=== PATIENT | male | born 1945 | race Caucasian/White ===

== ENCOUNTER 2016-12-04 14:46 | Inpatient (IN) | payer MEDICARE, OTHER ==
[~2016-12-04] VITALS: Ht 182.9 cm; Wt 72.9 kg
[2016-12-04] MEDS ORDERED: SODIUM CHLORIDE FLUSH 10ML SYR IVF ONE (15:00)
[2016-12-04 15:15] LABS: HEMATOCRIT 37.5 % (39.2-51.8); HEMOGLOBIN 12.9 g/dL (13.7-18.0); WHITE BLOOD COUNT 15.9 x10^3/uL (3.4-10)
[2016-12-04 15:21] LABS: ABG COLLECTION SITE LEFT BRACHIAL
[2016-12-04 15:30] LABS: BLOOD UREA NITROGEN 17 mg/dL (7-18)
[2016-12-04 15:36] LABS: ACETAMINOPHEN 2 mcg/mL (10-30); ASPARTATE AMINO TRANSFERASE 18 U/L (15-37)
[2016-12-04 15:38] LABS: IS PT STATUS REG ER OR PRE ER? YES
[2016-12-04] MEDS ORDERED: SODIUM CHLORIDE 0.9% 1,000 ML IV ONE (15:42)
[2016-12-04] MEDS: AMPICILLIN/SULBACTAM 3 GM in SODIUM CHLORIDE 0.9% 100 ML IV SCH ×2 (16:00→22:35)
[2016-12-04] MEDS ORDERED: SODIUM CHLORIDE 0.9% 1,000ML IVBOLUS ONE ×2 (16:00→22:30)
[2016-12-04] MEDS ORDERED: SUCCINYLCHOLINE 20 MG/ML, 10ML IVPush ONE (16:00)
[2016-12-04] MEDS ORDERED: ONDANSETRON 2MG/ML, 2ML IVPush PRN (16:30)
[2016-12-04] MEDS ORDERED: morphine SULFATE 10 MG/ML, 1ML IVPush PRN (16:30)
[2016-12-04] MEDS ORDERED: ENALAPRILAT 1.25 MG/ML, 2ML IVPush PRN (16:30)
[2016-12-04] MEDS ORDERED: POLYETHYLENE GLYCOL 17 GM PACKET PO PRN (16:30)
[2016-12-04] MEDS ORDERED: LORazepam 2 MG/ML, 1ML IVPush PRN (16:30)
[2016-12-04] MEDS ORDERED: OXYcodone IR 5MG TABLET PO PRN (16:30)
[2016-12-04] MEDS ORDERED: ETOMIDATE 40 MG/20 ML ONE (16:45)
[2016-12-04] MEDS ORDERED: SUCCINYLCHOLINE 20 MG/ML, 10ML ONE (16:45)
[2016-12-04] MEDS ORDERED: NOREPINEPHRINE 4 MG in SODIUM CHLORIDE 0.9% 246 ML IV PRN (17:00)
[2016-12-04 17:05] LABS: DAU SCREEN DISCLAIMER
[2016-12-04] MEDS ORDERED: FAMOTIDINE 20 MG/2 ML IV SCH (17:30)
[2016-12-04] MEDS ORDERED: MIDAZOLAM 1 MG/ML, 2ML IVPush PRN (17:30)
[2016-12-04] MEDS ORDERED: LIDOCAINE-MPF 1%, 2ML ENDO PRN (17:30)
[2016-12-04] MEDS ORDERED: PHARMACY MAY ADJ FOR RENAL FX MC SCH (17:30)
[2016-12-04] MEDS: ALBUTEROL/IPRATROPIUM 2.5MG/0.5MG, 3 ML INLINE SCH ×2 (17:30→21:40)
[2016-12-04] MEDS ORDERED: BISACODYL 10 MG SUPP PR PRN (17:30)
[2016-12-04] MEDS ORDERED: SENNA/DOCUSATE TABLET NG PRN (17:30)
[2016-12-04] MEDS ORDERED: MAGNESIUM SULFATE PMX 2GM/50ML 50 ML IV ONE (18:30)
[2016-12-04] MEDS: NS + 20MEQ KCL 1,000 ML IV SCH (18:33)
[2016-12-04] MEDS: SODIUM CHLORIDE 0.9% 1,000ML IV SCH ×2 (20:12→23:27)
[2016-12-04 20:40] LABS: ACETAMINOPHEN < 2 mcg/mL (10-30); IS PT STATUS REG ER OR PRE ER? NO
[2016-12-04] MEDS: PLEASE ENTER HEIGHT AND WEIGHT MC SCH (21:08)
[2016-12-04] MEDS: ENOXAPARIN 40 MG/0.4 ML SQ SCH (21:08)
[2016-12-04] MEDS ORDERED: POTASSIUM CHLORIDE 20 MEQ PACKET NG ONE (23:30)
[2016-12-05] MEDS: PLEASE ENTER HEIGHT AND WEIGHT MC SCH
[2016-12-05] MEDS: ALBUTEROL/IPRATROPIUM 2.5MG/0.5MG, 3 ML INLINE SCH ×3 (02:19→09:30)
[2016-12-05 03:33] LABS: HEMATOCRIT 34.5 % (39.2-51.8); HEMOGLOBIN 11.9 g/dL (13.7-18.0); WHITE BLOOD COUNT 12.4 x10^3/uL (3.4-10)
[2016-12-05 03:41] LABS: ASPARTATE AMINO TRANSFERASE 50 U/L (15-37); BLOOD UREA NITROGEN 14 mg/dL (7-18)
[2016-12-05 03:45] LABS: IS PT STATUS REG ER OR PRE ER? NO
[2016-12-05] MEDS: NS + 20MEQ KCL 1,000 ML IV SCH (03:47)
[2016-12-05] MEDS: AMPICILLIN/SULBACTAM 3 GM in SODIUM CHLORIDE 0.9% 100 ML IV SCH ×4 (03:47→22:44)
[2016-12-05 04:00] VITALS: BP 102/109
[2016-12-05 04:32] LABS: ABG COLLECTION SITE RIGHT BRACHIAL
[2016-12-05] MEDS: SODIUM CHLORIDE 0.9% 1,000 ML IV SCH ×3 (06:26→20:25)
[2016-12-05] MEDS ORDERED: SENNA/DOCUSATE TABLET PO SCH (09:00)
[2016-12-05] MEDS: PANTOPRAZOLE 40 MG IV IVPush SCH (09:01)
[2016-12-05 10:06] LABS: IS PT STATUS REG ER OR PRE ER? NO
[2016-12-05] MEDS: METOPROLOL TARTRATE 25 MG TABLET PO SCH ×2 (11:41→18:00)
[2016-12-05] MEDS: ASPIRIN 81 MG TABLET CHEW PO SCH (16:00)
[2016-12-05] MEDS: ENOXAPARIN 40 MG/0.4 ML SQ SCH (20:25)
[2016-12-06 04:00] VITALS: BP 118/68
[2016-12-06 04:41] LABS: ABG COLLECTION SITE RIGHT RADIAL; COLLATERAL CIRCULATION TESTING NORMAL
[2016-12-06] MEDS: SODIUM CHLORIDE 0.9% 1,000 ML IV SCH ×4 (04:43→21:21)
[2016-12-06] MEDS: AMPICILLIN/SULBACTAM 3 GM in SODIUM CHLORIDE 0.9% 100 ML IV SCH (04:43)
[2016-12-06 04:55] LABS: BLOOD UREA NITROGEN 8 mg/dL (7-18); HEMATOCRIT 33.7 % (39.2-51.8); HEMOGLOBIN 11.5 g/dL (13.7-18.0); WHITE BLOOD COUNT 9.1 x10^3/uL (3.4-10)
[2016-12-06 04:58] LABS: ASPARTATE AMINO TRANSFERASE 45 U/L (15-37)
[2016-12-06] MEDS: METOPROLOL TARTRATE 25 MG TABLET PO SCH ×2 (06:00→18:00)
[2016-12-06] MEDS: ASPIRIN 81 MG TABLET CHEW PO SCH (09:00)
[2016-12-06] MEDS ORDERED: POTASSIUM PHOSPHATE 44 MEQ in SODIUM CHLORIDE 0.9% 500 ML IV ONE (09:00)
[2016-12-06] MEDS: PANTOPRAZOLE 40 MG IV IVPush SCH (10:38)
[2016-12-06 13:41] LABS: ABG COLLECTION SITE LEFT RADIAL; COLLATERAL CIRCULATION TESTING NORMAL
[2016-12-06] MEDS: ENOXAPARIN 40 MG/0.4 ML SQ SCH (21:20)
[2016-12-07 04:37] LABS: ABG COLLECTION SITE LEFT RADIAL; COLLATERAL CIRCULATION TESTING NORMAL
[2016-12-07 04:42] LABS: HEMATOCRIT 36.6 % (39.2-51.8); HEMOGLOBIN 12.7 g/dL (13.7-18.0); WHITE BLOOD COUNT 10.1 x10^3/uL (3.4-10)
[2016-12-07 04:52] LABS: BLOOD UREA NITROGEN 7 mg/dL (7-18)
[2016-12-07] MEDS: SODIUM CHLORIDE 0.9% 1,000 ML IV SCH (05:33)
[2016-12-07] MEDS: METOPROLOL TARTRATE 25 MG TABLET PO SCH ×2 (05:33→18:00)
[2016-12-07] MEDS ORDERED: FUROSEMIDE 20 MG/2 ML IV ONE (10:00)
[2016-12-07] MEDS ORDERED: POTASSIUM CHLORIDE 20 MEQ TAB.ER.PRT PO ONE (10:05)
[2016-12-07] MEDS ORDERED: MAGNESIUM SULFATE PMX 2GM/50ML 50 ML IV ONE (10:30)
[2016-12-07] MEDS: NS + 40MEQ KCL 1,000 ML IV SCH (10:46)
[2016-12-07] MEDS: PANTOPRAZOLE 40 MG IV IVPush SCH (10:47)
[2016-12-07] MEDS: AMPICILLIN/SULBACTAM 3 GM in SODIUM CHLORIDE 0.9% 100 ML IV SCH ×2 (13:54→20:24)
[2016-12-07] MEDS: ASPIRIN 81 MG TABLET CHEW PO SCH (13:54)
[2016-12-07] MEDS: FUROSEMIDE 20 MG/2 ML IV SCH (18:21)
[2016-12-07] MEDS: POTASSIUM CHLORIDE 20 MEQ TAB.ER.PRT PO SCH (18:21)
[2016-12-07] MEDS: ENOXAPARIN 40 MG/0.4 ML SQ SCH (20:24)
[2016-12-08] MEDS: AMPICILLIN/SULBACTAM 3 GM in SODIUM CHLORIDE 0.9% 100 ML IV SCH ×4 (02:33→20:55)
[2016-12-08] MEDS: NS + 40MEQ KCL 1,000 ML IV SCH (03:25)
[2016-12-08 04:24] LABS: HEMATOCRIT 37.2 % (39.2-51.8); HEMOGLOBIN 12.6 g/dL (13.7-18.0); WHITE BLOOD COUNT 8.8 x10^3/uL (3.4-10)
[2016-12-08 04:30] LABS: ABG COLLECTION SITE RIGHT RADIAL; COLLATERAL CIRCULATION TESTING NORMAL
[2016-12-08 04:38] LABS: ASPARTATE AMINO TRANSFERASE 39 U/L (15-37); BLOOD UREA NITROGEN 11 mg/dL (7-18)
[2016-12-08] MEDS ORDERED: SODIUM CHLORIDE 0.9% 1,000 ML IV SCH (05:30)
[2016-12-08] MEDS: METOPROLOL TARTRATE 25 MG TABLET PO SCH ×2 (05:52→18:00)
[2016-12-08] MEDS: ASPIRIN 81 MG TABLET CHEW PO SCH (07:44)
[2016-12-08] MEDS: FUROSEMIDE 20 MG/2 ML IV SCH ×2 (07:44→17:00)
[2016-12-08] MEDS: POTASSIUM CHLORIDE 20 MEQ TAB.ER.PRT PO SCH (07:44)
[2016-12-08] MEDS: PANTOPRAZOLE 40 MG IV IVPush SCH (07:44)
[2016-12-08] MEDS ORDERED: POTASSIUM PHOSPHATE 44 MEQ in SODIUM CHLORIDE 0.9% 500 ML IV ONE (09:00)
[2016-12-08] MEDS: POTASSIUM CHLORIDE 10% 40 MEQ/30 ML UDC PO SCH (17:00)
[2016-12-08] MEDS: ENOXAPARIN 40 MG/0.4 ML SQ SCH (20:55)
[2016-12-09] MEDS: AMPICILLIN/SULBACTAM 3 GM in SODIUM CHLORIDE 0.9% 100 ML IV SCH ×4 (02:53→20:19)
[2016-12-09 04:58] LABS: HEMATOCRIT 37.4 % (39.2-51.8); HEMOGLOBIN 12.9 g/dL (13.7-18.0); WHITE BLOOD COUNT 10.4 x10^3/uL (3.4-10)
[2016-12-09 05:04] LABS: ABG COLLECTION SITE LEFT RADIAL; COLLATERAL CIRCULATION TESTING NORMAL
[2016-12-09 05:26] LABS: BLOOD UREA NITROGEN 16 mg/dL (7-18)
[2016-12-09] MEDS: METOPROLOL TARTRATE 25 MG TABLET PO SCH ×2 (06:00→17:20)
[2016-12-09] MEDS ORDERED: LIDOCAINE-MPF 1%, 2ML ENDO PRN (08:30)
[2016-12-09] MEDS: ALBUTEROL/IPRATROPIUM 2.5MG/0.5MG, 3 ML INLINE SCH ×5 (08:30→21:31)
[2016-12-09] MEDS: FUROSEMIDE 20 MG/2 ML IV SCH ×2 (10:25→17:20)
[2016-12-09] MEDS: PANTOPRAZOLE 40 MG IV IVPush SCH (10:26)
[2016-12-09] MEDS: ASPIRIN 81 MG TABLET CHEW PO SCH (10:26)
[2016-12-09] MEDS: POTASSIUM CHLORIDE 10% 40 MEQ/30 ML UDC PO SCH ×2 (11:30→17:20)
[2016-12-09] MEDS ORDERED: GADOBUTROL 7.5 MMOL/7.5 ML PFS ONE (13:13)
[2016-12-09] MEDS ORDERED: ACETAMINOPHEN 650 MG SUPP PR PRN (14:00)
[2016-12-09] MEDS ORDERED: ACETAMINOPHEN 325 MG TABLET PO PRN (14:00)
[2016-12-09] MEDS ORDERED: ACETAMINOPHEN 325 MG TABLET ONE (14:09)
[2016-12-09 14:21] LABS: ABG COLLECTION SITE LEFT RADIAL; COLLATERAL CIRCULATION TESTING NORMAL
[2016-12-09] MEDS ORDERED: ETOMIDATE 20 MG/10 ML ONE (16:00)
[2016-12-09] MEDS ORDERED: PROPOFOL 10 MG/ML, 100ML IV ONE (16:00)
[2016-12-09] MEDS: PROPOFOL 100 ML IV PRN (20:06)
[2016-12-09] MEDS: ENOXAPARIN 40 MG/0.4 ML SQ SCH (20:19)
[2016-12-10] MEDS: ALBUTEROL/IPRATROPIUM 2.5MG/0.5MG, 3 ML INLINE SCH ×6 (01:41→22:00)
[2016-12-10] MEDS: AMPICILLIN/SULBACTAM 3 GM in SODIUM CHLORIDE 0.9% 100 ML IV SCH ×4 (02:59→19:49)
[2016-12-10 04:36] LABS: HEMOGLOBIN 12.1 g/dL (13.7-18.0); WHITE BLOOD COUNT 8.7 x10^3/uL (3.4-10)
[2016-12-10 04:38] LABS: ABG COLLECTION SITE RIGHT RADIAL; COLLATERAL CIRCULATION TESTING NORMAL
[2016-12-10 04:49] LABS: BLOOD UREA NITROGEN 24 mg/dL (7-18)
[2016-12-10 06:06] VITALS: BP 131/66
[2016-12-10] MEDS: METOPROLOL TARTRATE 25 MG TABLET PO SCH ×2 (06:14→18:10)
[2016-12-10] MEDS: PANTOPRAZOLE 40 MG IV IVPush SCH (08:41)
[2016-12-10] MEDS: ASPIRIN 81 MG TABLET CHEW PO SCH (08:41)
[2016-12-10] MEDS: POTASSIUM CHLORIDE 10% 40 MEQ/30 ML UDC PO SCH ×2 (08:41→16:27)
[2016-12-10] MEDS: FUROSEMIDE 20 MG/2 ML IV SCH ×2 (08:41→16:27)
[2016-12-10] MEDS: LACTULOSE 20 GM/30 ML UDC NG PRN (12:46)
[2016-12-10] MEDS: PROPOFOL 100 ML IV PRN (12:46)
[2016-12-10] MEDS: INSULIN ASPART 100 UNITS/ML, PEN SQ-INSULIN SCH ×2 (16:27→22:26)
[2016-12-10] MEDS: ENOXAPARIN 40 MG/0.4 ML SQ SCH (19:49)
[2016-12-11] MEDS: PROPOFOL 100 ML IV PRN ×2 (01:30→23:54)
[2016-12-11] MEDS: ALBUTEROL/IPRATROPIUM 2.5MG/0.5MG, 3 ML INLINE SCH ×6 (01:54→22:16)
[2016-12-11] MEDS: AMPICILLIN/SULBACTAM 3 GM in SODIUM CHLORIDE 0.9% 100 ML IV SCH ×4 (01:59→20:00)
[2016-12-11 04:48] LABS: HEMATOCRIT 34.7 % (39.2-51.8); HEMOGLOBIN 11.8 g/dL (13.7-18.0); WHITE BLOOD COUNT 8.3 x10^3/uL (3.4-10)
[2016-12-11 04:57] LABS: ABG COLLECTION SITE RIGHT BRACHIAL
[2016-12-11 05:00] VITALS: BP 128/84
[2016-12-11 05:06] LABS: BLOOD UREA NITROGEN 26 mg/dL (7-18)
[2016-12-11] MEDS: INSULIN ASPART 100 UNITS/ML, PEN SQ-INSULIN SCH ×4 (06:11→22:36)
[2016-12-11] MEDS: METOPROLOL TARTRATE 25 MG TABLET PO SCH ×2 (06:11→17:58)
[2016-12-11] MEDS: FUROSEMIDE 20 MG/2 ML IV SCH ×2 (07:25→17:57)
[2016-12-11] MEDS: PANTOPRAZOLE 40 MG IV IVPush SCH (07:25)
[2016-12-11] MEDS: POTASSIUM CHLORIDE 10% 40 MEQ/30 ML UDC PO SCH ×2 (08:47→17:57)
[2016-12-11] MEDS: INSULIN DETEMIR 100 UNITS/ML, PEN SQ-INSULIN SCH ×2 (08:54→20:01)
[2016-12-11] MEDS: ASPIRIN 81 MG TABLET CHEW PO SCH (10:05)
[2016-12-11] MEDS: ENOXAPARIN 40 MG/0.4 ML SQ SCH (20:02)
[2016-12-12] MEDS: AMPICILLIN/SULBACTAM 3 GM in SODIUM CHLORIDE 0.9% 100 ML IV SCH ×4 (01:52→19:46)
[2016-12-12] MEDS: ALBUTEROL/IPRATROPIUM 2.5MG/0.5MG, 3 ML INLINE SCH ×6 (02:15→22:32)
[2016-12-12 03:34] LABS: ABG COLLECTION SITE RIGHT BRACHIAL
[2016-12-12 03:56] LABS: BLOOD UREA NITROGEN 30 mg/dL (7-18)
[2016-12-12 04:04] LABS: DIFF TOTAL CELLS COUNTED 100 CELL DIFF; HEMATOCRIT 36.8 % (39.2-51.8); HEMOGLOBIN 12.5 g/dL (13.7-18.0); WHITE BLOOD COUNT 8.6 x10^3/uL (3.4-10)
[2016-12-12 04:07] LABS: ANISOCYTOSIS 1+; HYPOCHROMIA 1+; VERIFY COUNTS? YES
[2016-12-12] MEDS: INSULIN ASPART 100 UNITS/ML, PEN SQ-INSULIN SCH ×4 (04:30→22:05)
[2016-12-12 04:39] VITALS: BP 151/89
[2016-12-12] MEDS: METOPROLOL TARTRATE 25 MG TABLET PO SCH ×2 (06:19→19:45)
[2016-12-12] MEDS: POTASSIUM CHLORIDE 10% 40 MEQ/30 ML UDC PO SCH ×2 (07:41→16:30)
[2016-12-12] MEDS: FUROSEMIDE 20 MG/2 ML IV SCH ×2 (07:41→16:30)
[2016-12-12] MEDS: INSULIN DETEMIR 100 UNITS/ML, PEN SQ-INSULIN SCH ×2 (07:42→19:46)
[2016-12-12] MEDS: PANTOPRAZOLE 40 MG IV IVPush SCH (07:42)
[2016-12-12] MEDS: ASPIRIN 81 MG TABLET CHEW PO SCH (07:45)
[2016-12-12] MEDS ORDERED: BISACODYL 10 MG SUPP PR PRN (19:30)
[2016-12-12] MEDS ORDERED: ACETAMINOPHEN 650 MG SUPP PR PRN (19:30)
[2016-12-12] MEDS ORDERED: morphine SULFATE 10 MG/ML, 1ML IVPush PRN (19:30)
[2016-12-12] MEDS ORDERED: PHARMACY MAY ADJ FOR RENAL FX MC SCH (19:30)
[2016-12-12] MEDS ORDERED: ENALAPRILAT 1.25 MG/ML, 2ML IVPush PRN (19:30)
[2016-12-12] MEDS ORDERED: ONDANSETRON 2MG/ML, 2ML IVPush PRN (19:30)
[2016-12-12] MEDS ORDERED: MIDAZOLAM 1 MG/ML, 2ML IVPush PRN (19:30)
[2016-12-12] MEDS ORDERED: LORazepam 2 MG/ML, 1ML IVPush PRN (19:30)
[2016-12-12] MEDS ORDERED: OXYcodone IR 5MG TABLET PO PRN (19:30)
[2016-12-12] MEDS: ENOXAPARIN 40 MG/0.4 ML SQ SCH (19:46)
[2016-12-13] MEDS: AMPICILLIN/SULBACTAM 3 GM in SODIUM CHLORIDE 0.9% 100 ML IV SCH ×4 (02:21→20:00)
[2016-12-13] MEDS: POLYETHYLENE GLYCOL 17 GM PACKET PO PRN (02:24)
[2016-12-13] MEDS: ALBUTEROL/IPRATROPIUM 2.5MG/0.5MG, 3 ML INLINE SCH ×2 (02:31→06:00)
[2016-12-13 04:00] VITALS: BP 112/58
[2016-12-13] MEDS: INSULIN ASPART 100 UNITS/ML, PEN SQ-INSULIN SCH ×5 (04:27→21:20)
[2016-12-13 04:46] LABS: BLOOD UREA NITROGEN 31 mg/dL (7-18)
[2016-12-13 05:01] LABS: ABG COLLECTION SITE RIGHT BRACHIAL
[2016-12-13 05:21] LABS: HEMATOCRIT 35.9 % (39.2-51.8); HEMOGLOBIN 12.3 g/dL (13.7-18.0); WHITE BLOOD COUNT 9.7 x10^3/uL (3.4-10)
[2016-12-13] MEDS: METOPROLOL TARTRATE 25 MG TABLET PO SCH ×2 (06:00→18:06)
[2016-12-13] MEDS: FUROSEMIDE 20 MG/2 ML IV SCH ×2 (07:20→16:51)
[2016-12-13] MEDS: PANTOPRAZOLE 40 MG IV IVPush SCH (07:20)
[2016-12-13] MEDS: ASPIRIN 81 MG TABLET CHEW PO SCH (07:20)
[2016-12-13] MEDS: POTASSIUM CHLORIDE 10% 40 MEQ/30 ML UDC PO SCH ×2 (07:20→16:51)
[2016-12-13] MEDS: INSULIN DETEMIR 100 UNITS/ML, PEN SQ-INSULIN SCH ×2 (07:21→20:06)
[2016-12-13] MEDS: ACETAMINOPHEN 325 MG TABLET PO PRN (14:30)
[2016-12-13] MEDS: LACTULOSE 20 GM/30 ML UDC NG PRN (16:48)
[2016-12-13] MEDS: ENOXAPARIN 40 MG/0.4 ML SQ SCH (20:00)
[2016-12-14] MEDS: AMPICILLIN/SULBACTAM 3 GM in SODIUM CHLORIDE 0.9% 100 ML IV SCH ×4 (02:14→19:43)
[2016-12-14 04:30] LABS: ABG COLLECTION SITE RIGHT BRACHIAL
[2016-12-14] MEDS: POLYETHYLENE GLYCOL 17 GM PACKET PO PRN (04:31)
[2016-12-14] MEDS: LACTULOSE 20 GM/30 ML UDC NG PRN (04:36)
[2016-12-14] MEDS: SENNOSIDES 8.8 MG/5 ML ORAL SOL NG PRN ×2 (04:36→21:03)
[2016-12-14 04:37] LABS: HEMATOCRIT 37.3 % (39.2-51.8); HEMOGLOBIN 12.7 g/dL (13.7-18.0); WHITE BLOOD COUNT 11.6 x10^3/uL (3.4-10)
[2016-12-14 04:44] LABS: BLOOD UREA NITROGEN 32 mg/dL (7-18)
[2016-12-14 05:00] VITALS: BP 153/93
[2016-12-14] MEDS: METOPROLOL TARTRATE 25 MG TABLET PO SCH ×2 (06:37→16:20)
[2016-12-14] MEDS: INSULIN ASPART 100 UNITS/ML, PEN SQ-INSULIN SCH ×4 (06:40→21:00)
[2016-12-14] MEDS: PANTOPRAZOLE 40 MG IV IVPush SCH (07:42)
[2016-12-14] MEDS: INSULIN DETEMIR 100 UNITS/ML, PEN SQ-INSULIN SCH (07:42)
[2016-12-14] MEDS: FUROSEMIDE 20 MG/2 ML IV SCH ×2 (07:42→16:20)
[2016-12-14] MEDS: ASPIRIN 81 MG TABLET CHEW PO SCH (07:47)
[2016-12-14] MEDS: POTASSIUM CHLORIDE 10% 40 MEQ/30 ML UDC PO SCH ×2 (09:49→16:20)
[2016-12-14] MEDS: ACETAMINOPHEN 325 MG TABLET PO PRN (16:20)
[2016-12-14] MEDS ORDERED: INSULIN DETEMIR 100 UNITS/ML, PEN SQ-INSULIN SCH ×2 (19:30)
[2016-12-14] MEDS: ENOXAPARIN 40 MG/0.4 ML SQ SCH (19:43)
[2016-12-15] MEDS: AMPICILLIN/SULBACTAM 3 GM in SODIUM CHLORIDE 0.9% 100 ML IV SCH ×2 (02:26→09:20)
[2016-12-15 04:27] LABS: HEMATOCRIT 37.7 % (39.2-51.8); HEMOGLOBIN 12.9 g/dL (13.7-18.0); WHITE BLOOD COUNT 12.4 x10^3/uL (3.4-10)
[2016-12-15 04:40] LABS: BLOOD UREA NITROGEN 35 mg/dL (7-18)
[2016-12-15 05:00] VITALS: BP 141/93
[2016-12-15] MEDS: METOPROLOL TARTRATE 25 MG TABLET PO SCH ×2 (06:22→16:44)
[2016-12-15] MEDS ORDERED: FUROSEMIDE 20 MG/2 ML IV SCH (07:30)
[2016-12-15] MEDS: ASPIRIN 81 MG TABLET CHEW PO SCH (07:57)
[2016-12-15] MEDS: INSULIN ASPART 100 UNITS/ML, PEN SQ-INSULIN SCH ×4 (07:57→21:27)
[2016-12-15] MEDS: INSULIN DETEMIR 100 UNITS/ML, PEN SQ-INSULIN SCH ×2 (07:58→21:26)
[2016-12-15 20:00] VITALS: BP 120/55
[2016-12-15] MEDS: ENOXAPARIN 40 MG/0.4 ML SQ SCH (21:28)
[2016-12-16 00:56] VITALS: BP 118/62
[2016-12-16 05:48] LABS: HEMATOCRIT 38.8 % (39.2-51.8); WHITE BLOOD COUNT 9.9 x10^3/uL (3.4-10)
[2016-12-16 05:51] LABS: BLOOD UREA NITROGEN 41 mg/dL (7-18)
[2016-12-16] MEDS: METOPROLOL TARTRATE 25 MG TABLET PO SCH ×2 (06:34→18:45)
[2016-12-16 07:01] VITALS: BP 104/68
[2016-12-16] MEDS: INSULIN DETEMIR 100 UNITS/ML, PEN SQ-INSULIN SCH ×2 (08:32→20:33)
[2016-12-16] MEDS: ASPIRIN 81 MG TABLET CHEW PO SCH (08:33)
[2016-12-16] MEDS: INSULIN ASPART 100 UNITS/ML, PEN SQ-INSULIN SCH ×4 (08:33→20:26)
[2016-12-16 13:21] VITALS: BP 134/78
[2016-12-16 18:44] VITALS: BP 112/68
[2016-12-16 19:31] VITALS: BP 128/84
[2016-12-16] MEDS: ENOXAPARIN 40 MG/0.4 ML SQ SCH (20:33)
[2016-12-17] MEDS: LACTULOSE 20 GM/30 ML UDC NG PRN (01:28)
[2016-12-17] MEDS: SENNOSIDES 8.8 MG/5 ML ORAL SOL NG PRN (01:28)
[2016-12-17 05:58] LABS: HEMATOCRIT 38.1 % (39.2-51.8); HEMOGLOBIN 12.7 g/dL (13.7-18.0); WHITE BLOOD COUNT 8.9 x10^3/uL (3.4-10)
[2016-12-17 06:22] LABS: ASPARTATE AMINO TRANSFERASE 27 U/L (15-37); BLOOD UREA NITROGEN 34 mg/dL (7-18)
[2016-12-17 06:44] VITALS: BP 134/84
[2016-12-17] MEDS: METOPROLOL TARTRATE 25 MG TABLET PO SCH ×2 (06:48→18:22)
[2016-12-17] MEDS: INSULIN DETEMIR 100 UNITS/ML, PEN SQ-INSULIN SCH ×2 (07:46→21:45)
[2016-12-17] MEDS: ASPIRIN 81 MG TABLET CHEW PO SCH (07:47)
[2016-12-17] MEDS: INSULIN ASPART 100 UNITS/ML, PEN SQ-INSULIN SCH ×4 (07:47→21:46)
[2016-12-17 13:17] VITALS: BP 123/80
[2016-12-17 18:22] VITALS: BP 125/69
[2016-12-17] MEDS: metFORMIN 500 MG TABLET PO SCH (18:22)
[2016-12-17 19:49] VITALS: BP 125/76
[2016-12-17] MEDS: ENOXAPARIN 40 MG/0.4 ML SQ SCH (21:46)
[2016-12-18 03:19] VITALS: BP 120/67
[2016-12-18] MEDS: ACETAMINOPHEN 325 MG TABLET PO PRN ×3 (03:59→20:39)
[2016-12-18 05:08] LABS: HEMATOCRIT 34.6 % (39.2-51.8); HEMOGLOBIN 11.7 g/dL (13.7-18.0); WHITE BLOOD COUNT 9.5 x10^3/uL (3.4-10)
[2016-12-18 05:22] LABS: BLOOD UREA NITROGEN 29 mg/dL (7-18)
[2016-12-18] MEDS: METOPROLOL TARTRATE 25 MG TABLET PO SCH ×2 (05:44→16:29)
[2016-12-18 07:30] VITALS: BP 133/70
[2016-12-18] MEDS: ASPIRIN 81 MG TABLET CHEW PO SCH (07:49)
[2016-12-18] MEDS: metFORMIN 500 MG TABLET PO SCH ×2 (07:49→16:28)
[2016-12-18] MEDS: INSULIN DETEMIR 100 UNITS/ML, PEN SQ-INSULIN SCH ×2 (07:50→20:39)
[2016-12-18] MEDS: INSULIN ASPART 100 UNITS/ML, PEN SQ-INSULIN SCH ×4 (07:51→20:31)
[2016-12-18 16:21] VITALS: BP 130/82
[2016-12-18] MEDS ORDERED: POTASSIUM CHLORIDE 20 MEQ TAB.ER.PRT PO ONE (16:30)
[2016-12-18 19:00] VITALS: BP 119/65
[2016-12-18] MEDS: ENOXAPARIN 40 MG/0.4 ML SQ SCH (20:39)
[2016-12-19 03:55] VITALS: BP 119/80
[2016-12-19 05:46] LABS: HEMATOCRIT 34.8 % (39.2-51.8); HEMOGLOBIN 11.8 g/dL (13.7-18.0); WHITE BLOOD COUNT 9.4 x10^3/uL (3.4-10)
[2016-12-19 05:52] LABS: BLOOD UREA NITROGEN 25 mg/dL (7-18)
[2016-12-19] MEDS: METOPROLOL TARTRATE 25 MG TABLET PO SCH ×2 (06:25→16:40)
[2016-12-19] MEDS: INSULIN ASPART 100 UNITS/ML, PEN SQ-INSULIN SCH ×4 (06:36→21:00)
[2016-12-19 06:40] VITALS: BP 132/86
[2016-12-19] MEDS: ASPIRIN 81 MG TABLET CHEW PO SCH (07:52)
[2016-12-19] MEDS: metFORMIN 500 MG TABLET PO SCH ×2 (07:52→16:21)
[2016-12-19] MEDS: INSULIN DETEMIR 100 UNITS/ML, PEN SQ-INSULIN SCH ×2 (07:53→21:22)
[2016-12-19] MEDS: ACETAMINOPHEN 325 MG TABLET PO PRN ×2 (12:27→21:12)
[2016-12-19] MEDS ORDERED: ONDANSETRON 2MG/ML, 2ML IVPush PRN (16:00)
[2016-12-19] MEDS ORDERED: ACETAMINOPHEN 650 MG SUPP PR PRN (16:00)
[2016-12-19] MEDS ORDERED: ENALAPRILAT 1.25 MG/ML, 2ML IVPush PRN (16:00)
[2016-12-19] MEDS ORDERED: POLYETHYLENE GLYCOL 17 GM PACKET PO PRN (16:00)
[2016-12-19] MEDS ORDERED: PHARMACY MAY ADJ FOR RENAL FX MC SCH (16:00)
[2016-12-19] MEDS ORDERED: BISACODYL 10 MG SUPP PR PRN (16:00)
[2016-12-19 16:31] VITALS: BP 123/69
[2016-12-19 20:22] VITALS: BP 130/79
[2016-12-19] MEDS: ENOXAPARIN 40 MG/0.4 ML SQ SCH (21:11)
[2016-12-20 02:00] VITALS: BP 107/62
[2016-12-20] MEDS: METOPROLOL TARTRATE 25 MG TABLET PO SCH ×2 (06:00→17:41)
[2016-12-20] MEDS: INSULIN ASPART 100 UNITS/ML, PEN SQ-INSULIN SCH ×4 (06:30→21:00)
[2016-12-20 07:29] VITALS: BP 115/68
[2016-12-20] MEDS: metFORMIN 500 MG TABLET PO SCH ×2 (08:27→17:41)
[2016-12-20] MEDS: ASPIRIN 81 MG TABLET CHEW PO SCH (08:27)
[2016-12-20] MEDS: INSULIN DETEMIR 100 UNITS/ML, PEN SQ-INSULIN SCH ×2 (08:28→19:30)
[2016-12-20 13:06] VITALS: BP 136/60
[2016-12-20 17:35] VITALS: BP 132/72
[2016-12-20 19:05] VITALS: BP 126/69
[2016-12-20] MEDS: ACETAMINOPHEN 325 MG TABLET PO PRN (20:47)
[2016-12-20] MEDS: ENOXAPARIN 40 MG/0.4 ML SQ SCH (20:47)
[2016-12-21 02:38] VITALS: BP 111/48
[2016-12-21] MEDS: METOPROLOL TARTRATE 25 MG TABLET PO SCH ×2 (06:00→17:33)
[2016-12-21] MEDS: INSULIN ASPART 100 UNITS/ML, PEN SQ-INSULIN SCH ×4 (07:00→19:41)
[2016-12-21 07:22] VITALS: BP 136/68
[2016-12-21] MEDS ORDERED: REGADENOSON 0.4 MG/5 ML SYRINGE ONE (08:27)
[2016-12-21] MEDS: ASPIRIN 81 MG TABLET CHEW PO SCH (11:07)
[2016-12-21] MEDS: metFORMIN 500 MG TABLET PO SCH (11:07)
[2016-12-21] MEDS: INSULIN DETEMIR 100 UNITS/ML, PEN SQ-INSULIN SCH ×2 (11:26→19:42)
[2016-12-21] MEDS ORDERED: INSU100I28 SQ-INSULIN (13:16)
[2016-12-21] MEDS ORDERED: METO25TA35 PO (13:16)
[2016-12-21] MEDS ORDERED: ASPI-515 PO (13:16)
[2016-12-21] MEDS: ACETAMINOPHEN 325 MG TABLET PO PRN ×2 (14:36→19:42)
[2016-12-21 14:59] VITALS: BP 125/63
[2016-12-21 17:26] VITALS: BP 128/68
[2016-12-21 18:32] VITALS: BP 139/66
[2016-12-21] MEDS: ENOXAPARIN 40 MG/0.4 ML SQ SCH (19:32)
[2016-12-21 22:27] VITALS: BP 144/77
[2016-12-22 06:23] VITALS: BP 160/79
[2016-12-22] MEDS: METOPROLOL TARTRATE 25 MG TABLET PO SCH ×2 (06:24→17:45)
[2016-12-22] MEDS: INSULIN ASPART 100 UNITS/ML, PEN SQ-INSULIN SCH ×4 (07:00→21:00)
[2016-12-22 07:27] VITALS: BP 145/80
[2016-12-22] MEDS: ASPIRIN 81 MG TABLET CHEW PO SCH (09:43)
[2016-12-22] MEDS: INSULIN DETEMIR 100 UNITS/ML, PEN SQ-INSULIN SCH ×2 (09:46→21:00)
[2016-12-22] MEDS: ACETAMINOPHEN 325 MG TABLET PO PRN (17:45)
[2016-12-22 17:46] VITALS: BP 153/84
[2016-12-22 19:25] VITALS: BP 154/76
[2016-12-22] MEDS: ENOXAPARIN 40 MG/0.4 ML SQ SCH (20:00)
[2016-12-22] MEDS ORDERED: DIPHENHYDRAMINE 25 MG CAPSULE PO ONE (21:00)
[2016-12-23] MEDS: INSULIN ASPART 100 UNITS/ML, PEN SQ-INSULIN SCH ×4 (07:00→20:49)
[2016-12-23 08:00] VITALS: BP 94/64
[2016-12-23] MEDS: ASPIRIN 81 MG TABLET CHEW PO SCH (08:57)
[2016-12-23] MEDS: METOPROLOL TARTRATE 25 MG TABLET PO SCH ×2 (08:58→17:09)
[2016-12-23] MEDS: INSULIN DETEMIR 100 UNITS/ML, PEN SQ-INSULIN SCH ×2 (08:59→20:51)
[2016-12-23] MEDS: ACETAMINOPHEN 325 MG TABLET PO PRN ×2 (13:55→20:46)
[2016-12-23 19:30] VITALS: BP 138/73
[2016-12-23] MEDS: ENOXAPARIN 40 MG/0.4 ML SQ SCH (20:00)
[2016-12-24] MEDS: METOPROLOL TARTRATE 25 MG TABLET PO SCH (06:23)
[2016-12-24 06:24] VITALS: BP 161/84
[2016-12-24] MEDS: INSULIN ASPART 100 UNITS/ML, PEN SQ-INSULIN SCH ×2 (07:00→11:17)
[2016-12-24] MEDS: ASPIRIN 81 MG TABLET CHEW PO SCH (08:41)
[2016-12-24] MEDS: INSULIN DETEMIR 100 UNITS/ML, PEN SQ-INSULIN SCH (08:43)
[2016-12-24 08:46] VITALS: BP 154/75
== END 2016-12-24 13:21 | DRG 870 ==
LOC: ED 16:04 → EDIP 17:51 → CCU 18:07 → CSU 12-08 08:42 → CCU 12-13 04:57 → 4NOR 12-16 00:36 → 3E 12-21 22:23
PROVIDERS: ADMIT Internal Medicine; ATTEND Internal Medicine
PROC: 0T9B70Z Drainage of Bladder with Drainage Device, Via Natural or Artificial Opening (ICD-10-PCS; principal; 2016-12-04)
PROC: 02HV33Z Insertion of Infusion Device into Superior Vena Cava, Percutaneous Approach (ICD-10-PCS; 2016-12-04)
PROC: B548ZZA Ultrasonography of Superior Vena Cava, Guidance (ICD-10-PCS; 2016-12-04)
PROC: 5A1935Z Respiratory Ventilation, Less than 24 Consecutive Hours (ICD-10-PCS; 2016-12-04)
PROC: 0BH17EZ Insertion of Endotracheal Airway into Trachea, Via Natural or Artificial Opening (ICD-10-PCS; 2016-12-04)
PROC: 0BH17EZ Insertion of Endotracheal Airway into Trachea, Via Natural or Artificial Opening (ICD-10-PCS; 2016-12-09)
PROC: 5A1955Z Respiratory Ventilation, Greater than 96 Consecutive Hours (ICD-10-PCS; 2016-12-09)
DX: A41.9 Sepsis, unspecified organism (principal); I21.4 Non-ST elevation (NSTEMI) myocardial infarction; I63.9 Cerebral infarction, unspecified; J69.0 Pneumonitis due to inhalation of food and vomit; J96.00 Acute respiratory failure, unspecified whether with hypoxia or hypercapnia; N17.0 Acute kidney failure with tubular necrosis; G92 Toxic encephalopathy; G93.1 Anoxic brain damage, not elsewhere classified; J81.1 Chronic pulmonary edema; E87.2 Acidosis; J98.11 Atelectasis; Z99.11 Dependence on respirator [ventilator] status; T44.7X2A Poisoning by beta-adrenoreceptor antagonists, intentional self-harm, initial encounter; E11.65 Type 2 diabetes mellitus with hyperglycemia; E83.42 Hypomagnesemia; E87.6 Hypokalemia; F43.21 Adjustment disorder with depressed mood; I10 Essential (primary) hypertension; I34.0 Nonrheumatic mitral (valve) insufficiency; J32.2 Chronic ethmoidal sinusitis; K59.00 Constipation, unspecified; T43.592A Poisoning by other antipsychotics and neuroleptics, intentional self-harm, initial encounter; R40.2430 Glasgow coma scale score 3-8, unspecified time; Z88.8 Allergy status to other drugs, medicaments and biological substances; Y92.89 Other specified places as the place of occurrence of the external cause; Z79.82 Long term (current) use of aspirin; T68.XXXA Hypothermia, initial encounter
CPT/HCPCS: 31500; 36415; 36600; 70450; 70553; 71010; 74230; 78452; 80048; 80053; 80061; 80307; 80329; 81001; 82140; 82550; 82607; 82803; 82805; 82947; 82962; 83036; 83605; 83735; 84100; 84132; 84443; 84478; 84484; 85025; 85610; 85730; 87040; 87070; 87077; 87081; 87186; 87205; 93005; 93017; 93306; 94002; 94003; 94150; 94640; 96361; 96374; A9585; J0295; J1650; J1815; J2704; J2785; J3480; J7620; A9502; C9113; C9898; G0479; G0480; J0330; J1940; J2270; J3475; J7030; J7040; Q0163; S0028